=== PATIENT | female | born 1950 | race Caucasian/White ===

== ENCOUNTER 2017-04-27 14:31 | Inpatient (IN) | payer MEDICARE ==
[~2017-04-27] VITALS: Ht 147.3 cm; Wt 50.7 kg
--- NOTE | ~2017-04-27 | EC ---
PATIENT:SABINO COX DATE OF SERVICE: 04/27/17 SEX: F MEDICAL RECORD: [id number] DATE OF : [birth year] LOCATION:D.M2 D.212 AGE OF PATIENT: 67 ADMISSION DATE: 04/27/17 REFERRING PHYSICIAN: INTERPRETING PHYSICIAN: CRYSTAL NUÑEZ MD ECHOCARDIOGRAM REPORT ECHO CHARGES 4 ECHO COMPLETE DATE: CLINICAL DIAGNOSIS: DYSPNEA ECHOCARDIOGRAPHIC MEASUREMENTS (adult normal given) AC root (d.<3.7cm) 2.5 cm LV Septum d (<1.2 cm> 1.1 cm Valve Excursion 1.7 cm LV Septum (systole) 1.3 cm Left Atria (s.<4.0cm> 3.5 cm LVPW d(<1.2cm) 1.2 cm RV (d.<2.3cm) 2.2 cm LVPW (sytole) 1.8 cm LV diastole(<5.6CM) 4.9 cm MV E-F(>70mm/sec) cm LV systole 3.2 cm LVOT Diameter 1.7 cm MV exc.(>10mm) cm Est.ejection fraction (50-75%) % DOPPLER: LVIT cm/sec A 65.0 cm/sec E 101 cm/sec LA cm/sec RVSP 50.0 mmHg LVOT 104 cm/sec AOP1/2T m/s Asc. Ao 141 cm/sec RVOT 95.0 cm/sec RA cm/sec PA 121 cm/sec AV Gradient Peak 8.0 mmHg AV Mean 3.4 mmHg AV Area 2.1 cm MV Gradient Peak 4.8 mmHg MV Mean 2.1 mmHg MV Area cm COMMENTS: Gis Administrator: Raf KIRAN HARDIN Order Management Specialist: 4 Dr. Nuñez TAPE# PACS Pericardial Effusion N DATE OF SERVICE: 04/28/2017 PROCEDURE: Transthoracic echocardiogram. FINDINGS: 1. Left ventricle is hyperdynamic in the posterior wall, apical wall. There are regional wall motion abnormalities with a septal wall showing hypokinesis. Overall, ejection fraction is mildly reduced with ejection fraction of 35% to 40%. 2. The right ventricle has right ventricular hypertrophy with normal to ECHOCARDIOGRAM REPORT [id number] SABINO COX hyperdynamic function. 3. The left atrium is normal. 4. The right atrium is normal. 5. The right ventricle is normal. 6. There is mild mitral regurgitation. 7. The tricuspid valve has moderate tricuspid regurgitation. The RVSP between 40-50 mmHg. 8. There is no significant pericardial effusion. 9. The pulmonic valve has mild pulmonic insufficiency. CONCLUSIONS: The patient with mild left ventricular hypertrophy. There is what appears to be regional wall motion abnormalities, specifically in the anterior septal wall, reducing the ejection fraction into the 35% and 40% consistent with possible prior infarction and there is zmod-hp-apovquor pulmonary hypertension. TRANSINT:[id number] Voice Confirmation ID: [id number] DOCUMENT ID: [id number] CRYSTAL NUÑEZ MD at 0924 CC: [id number] DICTATION DATE: 04/28/17 1527 SLURRY MIXER: 04/28/17 1543 ADM IN [facility] [address] [place] [address]
--- NOTE | ~2017-04-27 | PN ---
PATIENT:SABINO COX MEDICAL RECORD: [id number] LOCATION:D. D.212 ADMISSION DATE: 04/27/17 PROGRESS NOTE DATE OF SERVICE: 04/29/2017 ADDENDUM CHIEF COMPLAINT: None. The patient is undergoing a PIPIDA scan with ejection fraction. I saw her in the radiology department. I saw her during the test. Her physical examination is unchanged from yesterday. I spoke to the radiation technologist. The radiation technologist then called me after the procedure to tell me that the ejection fraction was abnormally low at 17%. However, the patient did not have any reproduction of symptoms with Ensure ingestion. Palpation of the upper abdomen aggravates. Nothing alleviates. Symptoms are of moderate severity. They are intermittent. For the typed portion of the progress note, please see the chart. This will include past medical and surgical history, current medications, allergies, social history, as well as family history. REVIEW OF SYSTEMS: Currently, no nausea, no vomiting, no fever, no chills. Positive for shortness of breath, no chest pain. Positive for abdominal pain and tenderness. PHYSICAL EXAMINATION: GENERAL: The patient does not appear acutely ill. She does appear chronically ill. VITAL SIGNS: Reviewed. The entire examination was performed in the presence of a female radiation technologist. EARS: External ears appear normal. Eyes: Extraocular movements are intact. NECK: Trachea is midline. CHEST: No intercostal retractions. PULMONARY: Mildly labored. No stridor. ABDOMEN: Tenderness as described above. No peritonitis to percussion. EXTREMITIES: No peripheral cyanosis. INTEGUMENT: There is an intertriginous rash. BACK: Mild thoracic kyphosis. LYMPHATIC: No lymphangitic streaking of the exposed extremities. IMPRESSION: 1. Biliary dyskinesia. 2. Pneumonia with exacerbation of chronic obstructive pulmonary disease. PLAN: The patient is at too high risk for a laparoscopic operation at this time. The fact that the patient did have an ejection fraction reveals that the patient does not have acute cholecystitis and/or a cystic ductal obstruction. Therefore, her current situation is not life threatening. I would wait until her pulmonary status is improved and her pneumonia has resolved and then we could consider an elective cholecystectomy at that time. TRANSINT:[id number] Voice Confirmation ID: [id number] DOCUMENT ID: [id number] PROGRESS NOTE [id number] KENNYSABINO OSWALD MARKOS FERRELL MD at 1042 CC: [id number] DICTATION DATE: 04/29/17 1653 FIRMWARE SOFTWARE VERIFICATION ENGINEER: 04/29/17 1832 ADM IN [place] [id number] [place] [id number]
--- NOTE | ~2017-04-27 | CN ---
PATIENT NAME:SABINO COX MEDICAL RECORD: [id number] : 48 LOCATION:D. D.2125 ADMIT DATE: 04/27/17 ACCOUNT: [id number] CONSULTING PHYSICIAN: MARKOS FERRELL MD REFERRING PHYSICIAN: LISSA SEALS MD DATE OF CONSULTATION: 04/28/2017 CHIEF COMPLAINT: Gallbladder problems. HISTORY OF PRESENT ILLNESS: I was asked to see the patient due to the possibility of gallbladder problems. The patient had a gallbladder ultrasound at an outlying facility. The patient has been having band-like upper abdominal pain. The tenderness is more in the epigastrium in the right upper quadrant than on the left. This has been intermittent. It is longstanding. Sometimes it radiates around to the back. It may be associated with food intake. It is of moderate severity. Palpation aggravates as does eating food. Nothing alleviates. I need to determine whether the patient has a life-threatening problem such as acute cholecystitis and/or a cystic ductal obstruction. The best way to determine this would be a PIPIDA scan with ejection fraction to see if there is some wall motion with either cholecystokinin injection or Ensure ingestion. I will plan to have this procedure performed tomorrow. This is a consultation note addendum. For the typed portion of the consult note, please see the chart. This will include the past medical and surgical history, current medications, allergies, social history as well as family history. REVIEW OF SYSTEMS: Positive for nausea. No vomiting, no fever, no chills. Positive for shortness of breath, no chest pain, no headache. PHYSICAL EXAMINATION: GENERAL: The patient does appear acutely ill. Also appears chronically ill. The entire physical examination was performed with the presence of a female nurse. VITAL SIGNS: Reviewed. EARS: External ears appear normal. EYES: Extraocular movements are intact. NECK: Trachea is midline. CHEST: No intercostal retractions. PULMONARY: Mildly labored and no stridor. Intercostal retractions are present. ABDOMEN: Tenderness as described above. No peritonitis to percussion. EXTREMITIES: No peripheral cyanosis. INTEGUMENT: There is an intertriginous rash. BACK: Mild thoracic kyphosis. LYMPHATICS: No lymphangitic streaking of the exposed extremities. PSYCHIATRIC: Normal affect. IMPRESSION: Abdominal pain, rule out gallbladder pathology. PLAN: Serial abdominal examinations. A PIPIDA scan with ejection fraction as described above. TRANSINT:[id number] Voice Confirmation ID: [id number] DOCUMENT ID: [id number] CONSULT REPORT [id number] SABINO COX ROBERT MD at 1042 CC: [id number] DICTATION DATE: 04/29/17 165 AUTOMATIC GLOVE TURNER AND FORMER: 04/29/17 1850 ADM IN [place] [id number] [place] [address]
--- NOTE | ~2017-04-27 | CN ---
PATIENT NAME:SABINO BRADSHAW MEDICAL RECORD: [id number] : 48 LOCATION:D. D.2125 ADMIT DATE: 04/27/17 ACCOUNT: [id number] CONSULTING PHYSICIAN: DIANA DAVIDSON MD REFERRING PHYSICIAN: RANJAN KINGSTON MD DATE OF CONSULTATION: 04/28/2017 CONSULT REQUESTING PHYSICIAN: Ranjan Kingston MD REASON FOR CONSULTATION: Pneumonia, ilsyd-sq-tmumedt hypoxic respiratory failure. HISTORY OF PRESENT ILLNESS: Ms. Bradshaw is a 67-year-old female who has pneumonia in the first week of April, she was discharged from [facility]. She was readmitted on the through the ER with pneumonia, hypotension and she required pressors. The patient was transferred from [place] to [facility] for advanced care. Now, she is coughing, the fever has gone. She still feels weak and shortness of breath with mild exertion. The cough is productive with green phlegm. She is also complaining of pain in the right upper quadrant. REVIEW OF SYSTEMS: Mainly in the history of present illness. PAST MEDICAL HISTORY: 1. Chronic obstructive pulmonary disease. 2. Chronic hypoxic respiratory failure. 3. Peripheral vascular disease. 4. History of nephrolithiasis. 5. Hypertension. 6. Coronary artery disease status post stent placement. PAST SURGICAL HISTORY: 1. Hysterectomy. 2. Lithotripsy. 3. Cardiac catheterization and stent placement. 4. Peripheral vessel stent placement. ALLERGIES: SHE IS ALLERGIC TO TRIAMINIC AND PSEUDOEPHEDRINE. MEDICATIONS: [employer] was reviewed. PERSONAL AND SOCIAL HISTORY: The patient has just quit smoking, January 2017. She smoked since the age of 18. She is a nondrinker. FAMILY HISTORY: Noncontributory. PHYSICAL EXAMINATION: GENERAL: Now, the patient is lying comfortably in the bed. She is in mild respiratory distress. VITAL SIGNS: The blood pressure is 140/62, pulse is 94, respiration is 21, temperature 98.1, and SpO2 is 96% on 2-1/2 liter nasal cannula. HEENT: Conjunctivae are pink. Sclerae are not icteric. NECK: Neck is supple. There is no JVD. CHEST: There are bilateral crackles, right more than the left. There is wheeze on forceful expiration. CONSULT REPORT [id number] KENNY,SABINO L HEART: Rhythm regular, normal sound, no murmur. ABDOMEN: Abdomen is soft, bowel sounds present. No hepatosplenomegaly. RECTAL: Deferred. EXTREMITIES: No cyanosis, no clubbing, no pedal edema. SKIN: The skin is warm, normal turgor. CENTRAL NERVOUS SYSTEM: The patient is awake and alert. There are no obvious cranial nerve abnormalities. The gait was not tested. CHEST RADIOGRAPH: There is infiltrate in the right lower lobe. There is a small right pleural effusion, possible parapneumonic right pleural effusion. IMPRESSION: 1. Possible congestive heart failure with chronic diastolic dysfunction. 2. Leukocytosis secondary to pneumonia. 3. Gastroesophageal reflux disease. 4. Coronary artery disease. 5. Ex-smoker. 6. Hypokalemia. 7. Possible cholecystitis. RECOMMENDATIONS: 1. Continue vancomycin and Levaquin. I will add cefepime 1 gram IV q.8 hourly. 2. Start methylprednisolone IV. Start Brovana and budesonide nebulizer. 3. Albuterol and ipratropium nebulizer q.i.d. and 4 hourly p.r.n. 4. Supplemental oxygen. 5. Antitussive. 6. Check alpha 1 antitrypsin level. 7. Check IgG, IgM, IgE, IgA. 8. Check the CT scan of the chest to rule out any obstructive pneumonia. 9. Speech pathologist evaluation for dysphagia. 10. Gastroesophageal reflux disease precautions given. Dr. Kingston, thank you for involving me in the care of Ms. Bradshaw. TRANSINT:[id number] Voice Confirmation ID: [id number] DOCUMENT ID: [id number] DIANA DAVIDSON MD at 1410 CC: RANJAN KINGSTON MD [id number] DICTATION DATE: 04/28/17 1249 REFLECTOR DRILLER AND DEBURRER: 04/28/17 1357 DIS IN 05/04/17 [place] [address]
[2017-04-27] MEDS ORDERED: K-TAB10 MEQ PO (17:20)
[2017-04-27] MEDS ORDERED: FUROSEMIDE20 MG PO (17:21)
[2017-04-27] MEDS ORDERED: HYDROCODONE-APA1 TAB PO (17:21)
[2017-04-27] MEDS ORDERED: PLAVIX75 MG PO (17:22)
[2017-04-27] MEDS ORDERED: ISOSORBIDE MONO60 M1 PO (17:22)
[2017-04-27] MEDS ORDERED: LOPRESSOR25 MG PO (17:22)
[2017-04-27] MEDS ORDERED: STIOLTO RESPIMAT4 GM INH (17:23)
[2017-04-27] MEDS ORDERED: REGLAN10 MG PO (17:23)
[2017-04-27] MEDS ORDERED: DALIRESP500 MCG PO (17:24)
[2017-04-27 18:03] VITALS: BP 145/64; BMI 20.3
[2017-04-27] MEDS ORDERED: PREDNISONE5 MG PO (18:36)
[2017-04-27 18:48] LABS: BASOPHILS 0.1 % (0-2); EOSINOPHILS 0 % (0-7); HEMATOCRIT 36.7 % (36.0-48.0); HEMOGLOBIN 12.5 g/dL (12-16); IMMATURE GRANULOCYTES 0.5 % (0-5); LYMPHOCYTES 1.6 % (15-50); MCH 32.6 pg (26.0-34.0); MCHC 34.1 g/dL (31.0-37.0); MCV 95.6 fL (80.0-100.0); MEAN PLATELET VOLUME 9.5 fL (7.4-10.4); MONOCYTES 3.8 % (2-11); PLATELET COUNT 180 10x3/uL (130-400); RBC 3.84 10x6/uL (4.00-5.40); RDW 16.3 % (11.5-14.5); WBC 12.2 10x3/uL (4.8-10.8)
[2017-04-27 19:12] LABS: ALBUMIN 1.9 g/dL (3.4-5.0); ALKALINE PHOSPHATASE 78 U/L (46-116); ALT (SGPT) 23 U/L (10-68); BILIRUBIN - TOTAL 0.97 mg/dL (0.2-1.3); CALC OSMOLALITY 280 mosm/kg (275-300); CALCIUM 8.4 mg/dL (8.5-10.1); CARBON DIOXIDE 23.9 mmol/L (21.0-32.0); CHLORIDE - SERUM 108 mmol/L (98-107); CREATININE - SERUM 0.8 mg/dL (0.6-1.3); GLUCOSE 114 mg/dL (74-106); POTASSIUM - SERUM 3.1 mmol/L (3.5-5.1); PROTEIN - SERUM 6.2 g/dL (6.4-8.2); SODIUM 141 mmol/L (136-145); UREA NITROGEN 10 mg/dL (7-18); eGFR NON AFRICAN AMERICAN 75 mL/min (90-120)
[2017-04-27 22:47] VITALS: BP 139/70
[2017-04-28 05:02] LABS: BASOPHILS 0.1 % (0-2); EOSINOPHILS 0.3 % (0-7); HEMATOCRIT 38.2 % (36.0-48.0); HEMOGLOBIN 12.7 g/dL (12-16); IMMATURE GRANULOCYTES 0.4 % (0-5); LYMPHOCYTES 5.2 % (15-50); MCH 31.9 pg (26.0-34.0); MCHC 33.2 g/dL (31.0-37.0); MEAN PLATELET VOLUME 9.6 fL (7.4-10.4); MONOCYTES 4.9 % (2-11); NEUTROPHILS 89.1 % (40-80); PLATELET COUNT 190 10x3/uL (130-400); RBC 3.98 10x6/uL (4.00-5.40); WBC 10.9 10x3/uL (4.8-10.8)
[2017-04-28 05:12] LABS: ALBUMIN 1.9 g/dL (3.4-5.0); ALKALINE PHOSPHATASE 82 U/L (46-116); ALT (SGPT) 20 U/L (10-68); CALC OSMOLALITY 276 mosm/kg (275-300); CALCIUM 8.1 mg/dL (8.5-10.1); CARBON DIOXIDE 27.2 mmol/L (21.0-32.0); CHLORIDE - SERUM 107 mmol/L (98-107); CREATININE - SERUM 0.8 mg/dL (0.6-1.3); POTASSIUM - SERUM 3.1 mmol/L (3.5-5.1); PROTEIN - SERUM 6.1 g/dL (6.4-8.2); SODIUM 141 mmol/L (136-145); UREA NITROGEN 8 mg/dL (7-18); eGFR NON AFRICAN AMERICAN 75 mL/min (90-120)
[2017-04-28 05:19] LABS: GLUCOSE 70 mg/dL (74-106)
[2017-04-28 06:39] VITALS: BP 165/84
[2017-04-28 08:27] VITALS: BP 142/68
[2017-04-28 10:57] VITALS: Ht 147.3 cm; Wt 50.7 kg
[2017-04-28 10:58] VITALS: BP 140/62
[2017-04-28] MEDS ORDERED: HYDROCODON-ACE1 EAC7 PO (11:38)
[2017-04-28 12:24] LABS: APPEARANCE HAZY (CLEAR); BACTERIA FEW /hpf (NONE SEEN); BILIRUBIN NEGATIVE (NEGATIVE); COLOR STRAW (YELLOW); EPITHELIAL CELLS OCC /hpf (0-5); GLUCOSE NEGATIVE (NEGATIVE); KETONE NEGATIVE (NEGATIVE); NITRITE NEGATIVE (NEGATIVE); PROTEIN NEGATIVE (NEGATIVE); SPECIFIC GRAVITY 1.005 (1.005-1.020); UROBILINOGEN NORMAL (NORMAL); WHITE CELLS - URINE OCC /hpf (0-5)
[2017-04-28 14:46] VITALS: BP 146/64
[2017-04-28 19:00] VITALS: BP 149/70
[2017-04-29 04:00] VITALS: BP 162/92
[2017-04-29 05:39] LABS: BASOPHILS 0 % (0-2); EOSINOPHILS 0 % (0-7); HEMATOCRIT 35.1 % (36.0-48.0); HEMOGLOBIN 11.7 g/dL (12-16); IMMATURE GRANULOCYTES 0.4 % (0-5); LYMPHOCYTES 4.9 % (15-50); MCH 31.1 pg (26.0-34.0); MCHC 33.3 g/dL (31.0-37.0); MEAN PLATELET VOLUME 9.6 fL (7.4-10.4); MONOCYTES 4.3 % (2-11); NEUTROPHILS 90.4 % (40-80); PLATELET COUNT 164 10x3/uL (130-400); RBC 3.76 10x6/uL (4.00-5.40); RDW 15.2 % (11.5-14.5)
[2017-04-29 05:42] LABS: MCV 93.4 fL (80.0-100.0); WBC 5.5 10x3/uL (4.8-10.8)
[2017-04-29 06:00] LABS: ALBUMIN 1.8 g/dL (3.4-5.0); ALKALINE PHOSPHATASE 68 U/L (46-116); ALT (SGPT) 21 U/L (10-68); CALCIUM 8.3 mg/dL (8.5-10.1); CARBON DIOXIDE 23.5 mmol/L (21.0-32.0); CHLORIDE - SERUM 109 mmol/L (98-107); CREATININE - SERUM 0.7 mg/dL (0.6-1.3); PROTEIN - SERUM 5.9 g/dL (6.4-8.2); SODIUM 144 mmol/L (136-145); UREA NITROGEN 9 mg/dL (7-18); eGFR NON AFRICAN AMERICAN 88 mL/min (90-120)
[2017-04-29 06:06] LABS: CALC OSMOLALITY 286 mosm/kg (275-300); GLUCOSE 109 mg/dL (74-106); POTASSIUM - SERUM 3.6 mmol/L (3.5-5.1)
[2017-04-29 09:03] VITALS: BP 151/75
[2017-04-29] MEDS ORDERED: BONIVA150 MG PO (12:31)
[2017-04-29 16:00] VITALS: BP 150/65
[2017-04-29] MEDS ORDERED: MELATONIN5 M3 PO (21:22)
[2017-04-29 21:44] VITALS: BP 115/50
[2017-04-30 00:30] VITALS: BP 135/59
[2017-04-30 04:30] VITALS: BP 141/71
[2017-04-30 04:35] LABS: BASOPHILS 0.1 % (0-2); EOSINOPHILS 0 % (0-7); HEMOGLOBIN 10.5 g/dL (12-16); IMMATURE GRANULOCYTES 0.4 % (0-5); LYMPHOCYTES 4.8 % (15-50); MCH 30.7 pg (26.0-34.0); MCHC 32.8 g/dL (31.0-37.0); MCV 93.6 fL (80.0-100.0); MEAN PLATELET VOLUME 9.6 fL (7.4-10.4); MONOCYTES 6.2 % (2-11); NEUTROPHILS 88.5 % (40-80); PLATELET COUNT 189 10x3/uL (130-400); RBC 3.42 10x6/uL (4.00-5.40); RDW 14.9 % (11.5-14.5)
[2017-04-30 04:37] LABS: WBC 7.6 10x3/uL (4.8-10.8)
[2017-04-30 05:06] LABS: ALBUMIN 1.7 g/dL (3.4-5.0); ALKALINE PHOSPHATASE 60 U/L (46-116); CALCIUM 8.3 mg/dL (8.5-10.1); CARBON DIOXIDE 27.4 mmol/L (21.0-32.0); CHLORIDE - SERUM 106 mmol/L (98-107); CREATININE - SERUM 0.8 mg/dL (0.6-1.3); GLUCOSE 116 mg/dL (74-106); POTASSIUM - SERUM 3.3 mmol/L (3.5-5.1); PROTEIN - SERUM 5.4 g/dL (6.4-8.2); SODIUM 140 mmol/L (136-145); eGFR NON AFRICAN AMERICAN 75 mL/min (90-120)
[2017-04-30 05:15] LABS: ALT (SGPT) 41 U/L (10-68); CALC OSMOLALITY 283 mosm/kg (275-300); UREA NITROGEN 23 mg/dL (7-18)
[2017-04-30 09:21] VITALS: BP 143/56
[2017-04-30 13:50] VITALS: BP 151/71
[2017-04-30 16:59] VITALS: BP 146/70
[2017-04-30 20:30] VITALS: BP 144/63
[2017-05-01] VITALS (12 sets, daily range): BP systolic 108–165; BP diastolic 51–84
[2017-05-01 04:33] LABS: BASOPHILS 0 % (0-2); EOSINOPHILS 0 % (0-7); HEMOGLOBIN 10.8 g/dL (12-16); IMMATURE GRANULOCYTES 0.4 % (0-5); LYMPHOCYTES 5.4 % (15-50); MCHC 32.7 g/dL (31.0-37.0); MCV 94.8 fL (80.0-100.0); MEAN PLATELET VOLUME 9.5 fL (7.4-10.4); MONOCYTES 8.6 % (2-11); NEUTROPHILS 85.6 % (40-80); RBC 3.48 10x6/uL (4.00-5.40); RDW 15.2 % (11.5-14.5)
[2017-05-01 04:34] LABS: PLATELET COUNT 238 10x3/uL (130-400); WBC 5.3 10x3/uL (4.8-10.8)
[2017-05-01 04:44] LABS: ALBUMIN 1.9 g/dL (3.4-5.0); ALKALINE PHOSPHATASE 55 U/L (46-116); ALT (SGPT) 40 U/L (10-68); BILIRUBIN - TOTAL 0.44 mg/dL (0.2-1.3); CALC OSMOLALITY 294 mosm/kg (275-300); CALCIUM 7.8 mg/dL (8.5-10.1); CARBON DIOXIDE 27.9 mmol/L (21.0-32.0); CHLORIDE - SERUM 109 mmol/L (98-107); CREATININE - SERUM 0.8 mg/dL (0.6-1.3); GLUCOSE 118 mg/dL (74-106); POTASSIUM - SERUM 4.1 mmol/L (3.5-5.1); PROTEIN - SERUM 5.6 g/dL (6.4-8.2); SODIUM 146 mmol/L (136-145); UREA NITROGEN 21 mg/dL (7-18); eGFR NON AFRICAN AMERICAN 75 mL/min (90-120)
[2017-05-01 07:13] LABS: APTT 28.3 SECONDS (22.8-39.4); INR 1.1 (0.85-1.17); PROTIME 13.8 SECONDS (11.6-15.0)
[2017-05-01 12:47] LABS: PROTEIN - BODY FLUID 1.5 G/DL
[2017-05-01 13:02] LABS: MACROPHAGES BF 6 %; MESOTHELIALS BF 5 %; NEUT - BF 84 %
[2017-05-01 13:13] LABS: IMMUNOGLOBULIN A 273 mg/dL (87-352); IMMUNOGLOBULIN M 67 mg/dL (26-217)
[2017-05-01 19:48] LABS: % SATURATION 18 % (15-55); IRON 32 ug/dl (35-150); TOTAL IRON BIND CAPACITY 172 ug/dl (260-445); UNSAT IRON BIND CAPACITY 140 ug/dl (150-375)
[2017-05-02 00:24] VITALS: BP 123/49
[2017-05-02 05:31] VITALS: BP 144/69
[2017-05-02 06:22] LABS: BASOPHILS 0.2 % (0-2); EOSINOPHILS 0.2 % (0-7); HEMOGLOBIN 11.7 g/dL (12-16); IMMATURE GRANULOCYTES 0.8 % (0-5); MCH 30.7 pg (26.0-34.0); MCHC 32.5 g/dL (31.0-37.0); MCV 94.5 fL (80.0-100.0); MEAN PLATELET VOLUME 8.9 fL (7.4-10.4); NEUTROPHILS 69.8 % (40-80); PLATELET COUNT 274 10x3/uL (130-400); RBC 3.81 10x6/uL (4.00-5.40); RDW 15.3 % (11.5-14.5); WBC 6.3 10x3/uL (4.8-10.8)
[2017-05-02 06:35] LABS: BILIRUBIN - TOTAL 0.6 mg/dL (0.2-1.3); CALCIUM 7.8 mg/dL (8.5-10.1); CARBON DIOXIDE 30.3 mmol/L (21.0-32.0); PROTEIN - SERUM 5.7 g/dL (6.4-8.2)
[2017-05-02 06:36] LABS: ANION GAP 9.9 mmol/L (8-16); POTASSIUM - SERUM 3.2 mmol/L (3.5-5.1)
[2017-05-02 08:00] VITALS: BP 125/56
[2017-05-02 11:47] VITALS: BP 145/66
[2017-05-02 14:19] LABS: IGG SUBCLASS 1 488 mg/dL (248-810); IGG SUBCLASS 2 100 mg/dL (130-555); IGG SUBCLASS 3 41 mg/dL (15-102); IGG SUBCLASS 4 32 mg/dL (2-96); IMMUNOGLOBULIN G 664 mg/dL (700-1600)
[2017-05-02 15:11] VITALS: BP 139/63
[2017-05-02 15:23] LABS: AFB SPECIMEN PROCESSING Not Indicated (())
[2017-05-03] VITALS: BP 138/60
[2017-05-03 05:18] VITALS: BP 134/54
[2017-05-03 06:24] LABS: BASOPHILS 0 % (0-2); EOSINOPHILS 0.2 % (0-7); HEMATOCRIT 32.3 % (36.0-48.0); HEMOGLOBIN 10.5 g/dL (12-16); IMMATURE GRANULOCYTES 0.9 % (0-5); LYMPHOCYTES 16.2 % (15-50); MCH 30.8 pg (26.0-34.0); MCHC 32.5 g/dL (31.0-37.0); MCV 94.7 fL (80.0-100.0); MEAN PLATELET VOLUME 9.5 fL (7.4-10.4); MONOCYTES 9.2 % (2-11); NEUTROPHILS 73.5 % (40-80); PLATELET COUNT 280 10x3/uL (130-400); RBC 3.41 10x6/uL (4.00-5.40); RDW 15.2 % (11.5-14.5); WBC 5.7 10x3/uL (4.8-10.8)
[2017-05-03 06:28] LABS: CALC OSMOLALITY 284 mosm/kg (275-300); CALCIUM 8.1 mg/dL (8.5-10.1); CHLORIDE - SERUM 107 mmol/L (98-107); CREATININE - SERUM 0.7 mg/dL (0.6-1.3); GLUCOSE 79 mg/dL (74-106); POTASSIUM - SERUM 3.5 mmol/L (3.5-5.1); SODIUM 143 mmol/L (136-145); UREA NITROGEN 15 mg/dL (7-18); eGFR NON AFRICAN AMERICAN 88 mL/min (90-120)
[2017-05-03 09:17] LABS: FOLATE (FOLIC ACID) - SERUM 16.7 ng/mL (>3.0)
[2017-05-03 10:52] VITALS: BP 107/52
[2017-05-03 14:24] LABS: FUNGUS STAIN Final report (())
[2017-05-03 16:25] VITALS: BP 158/56
[2017-05-03 20:00] VITALS: BP 150/60
[2017-05-04] VITALS: BP 151/64
[2017-05-04 04:00] VITALS: BP 156/76
[2017-05-04 08:34] VITALS: BP 153/62
[2017-05-04] MEDS ORDERED: IPRAT-ALBUT 0.5-3 ML UPD (08:41)
[2017-05-04] MEDS ORDERED: PROTONIX40 MG PO (08:42)
[2017-05-04] MEDS ORDERED: PREDNISONE20 MG PO (08:44)
[2017-05-04 10:22] LABS: IMMUNOGLOBULIN E 45 IU/mL (0-100)
[2017-05-04 11:52] VITALS: BP 140/65
[2017-05-29 15:23] LABS: FUNGUS MYCOLOGY CULTURE Final report (())
[2017-06-26 18:09] LABS: ACID FAST CULTURE Negative (()); ACID FAST SMEAR Negative (())
[2017-06-27] MEDS ORDERED: LEVAQUIN500 MG PO (10:57)
[2017-06-27] MEDS ORDERED: ASMANEX0.24 GM INH (11:00)
[2017-06-27] MEDS ORDERED: ESTRACE 0.5 MG0.5 MG PO (11:00)
[2017-06-27] MEDS ORDERED: STIOLTO RESPIMAT4 GM INH (11:01)
== END 2017-05-04 12:55 | disposition home or self-care (01) | DRG 291 ==
LOC: UNDOADMIN 14:31 → D.M2 14:31 → D.MS 16:01 → D.M2 16:42
PROVIDERS: Family Medicine Adult Medicine; General Practice; Internal Medicine Nephrology; Internal Medicine Pulmonary Disease
PROC: 0W993ZZ Drainage of Right Pleural Cavity, Percutaneous Approach (ICD-10-PCS; principal; 2017-05-01 08:41)
DX: I50.33 Acute on chronic diastolic (congestive) heart failure (principal); J18.9 Pneumonia, unspecified organism; J96.21 Acute and chronic respiratory failure with hypoxia; J44.0 Chronic obstructive pulmonary disease with (acute) lower respiratory infection; J44.1 Chronic obstructive pulmonary disease with (acute) exacerbation; I25.10 Atherosclerotic heart disease of native coronary artery without angina pectoris; Z95.5 Presence of coronary angioplasty implant and graft; I11.0 Hypertensive heart disease with heart failure; Z87.891 Personal history of nicotine dependence; E87.6 Hypokalemia; D53.9 Nutritional anemia, unspecified; K81.9 Cholecystitis, unspecified

== ENCOUNTER → 2017-06-21 08:16 | Outpatient (CLI) | payer MEDICARE, MEDICAID ==
[2017-04-28 10:57] VITALS: BMI 23.2
[~2017-06-21 08:16] MED LIST: ASMANEX0.24 GM INH; BONIVA150 MG PO; DALIRESP500 MCG PO; ESTRACE 0.5 MG0.5 MG PO; FUROSEMIDE20 MG PO; HYDROCODON-ACE1 EAC7 PO; HYDROCODONE-APA1 TAB PO; IPRAT-ALBUT 0.5-3 ML UPD; ISOSORBIDE MONO60 M1 PO; K-TAB10 MEQ PO; LEVAQUIN500 MG PO; LOPRESSOR25 MG PO; MELATONIN5 M3 PO; PLAVIX75 MG PO; PREDNISONE20 MG PO; PREDNISONE5 MG PO; PROTONIX40 MG PO; REGLAN10 MG PO; STIOLTO RESPIMAT4 GM INH
== END | disposition home or self-care (01) ==
LOC: D.RT 08:16
DX: J18.9 Pneumonia, unspecified organism (principal); J44.9 Chronic obstructive pulmonary disease, unspecified

== ENCOUNTER 2017-06-30 09:32 | Day surgery (SDC) | payer MEDICARE ==
[2017-06-27 11:51] LABS: HEMOGLOBIN 13.6 g/dL (12-16); MCH 31.5 pg (26.0-34.0); MCHC 33.2 g/dL (31.0-37.0); MCV 94.9 fL (80.0-100.0); MEAN PLATELET VOLUME 9.1 fL (7.4-10.4); RBC 4.32 10x6/uL (4.00-5.40); RDW 14.2 % (11.5-14.5); WBC 8.5 10x3/uL (4.8-10.8)
[2017-06-27 12:10] LABS: ANION GAP 10.9 mmol/L (8-16); CALCIUM 9.1 mg/dL (8.5-10.1); CARBON DIOXIDE 31.4 mmol/L (21.0-32.0); POTASSIUM - SERUM 3.3 mmol/L (3.5-5.1)
[2017-06-27 12:15] LABS: APTT 35.6 SECONDS (22.8-39.4); INR 1.03 (0.85-1.17); PROTIME 13.1 SECONDS (11.6-15.0)
[~2017-06-30] VITALS: Ht 147.3 cm; Wt 45.8 kg
--- NOTE | ~2017-06-30 | OP ---
PATIENT NAME: SABINO COX MEDICAL RECORD: [id number] :48 LOCATION:[facility] ADMISSION DATE: SURGEON: MARKOS FERRELL MD DATE OF OPERATION: 06/30/2017 PREOPERATIVE DIAGNOSIS: Biliary dyskinesia. POSTOPERATIVE DIAGNOSES: Biliary dyskinesia with hepatomegaly and adhesions to the gallbladder. PROCEDURE: 1. Laparoscopic cholecystectomy. 2. Intraoperative cholangiography without immediate surgeon interpretation. 3. A 14-gauge core needle liver biopsy. SURGEON: Markos Ferrell MD DRUG REGULATORY AFFAIRS SPECIALIST: JOVANY Spaulding. BLOOD LOSS: Minimal. COMPLICATIONS: None. The risks, possible complications, and alternatives to the procedure were explained to the patient. She elects to proceed. The discussion specifically included, but was not limited to, bleeding requiring emergency reoperation, infection, intestinal injury as well as common bile duct injury. OPERATIVE COURSE: The patient was conveyed to the operating room electively on 06/30/2017. General anesthesia was induced by the anesthesia staff. The abdomen was sterilely prepped and draped. A small skin nicole was accomplished in the left upper quadrant. A Veress needle was inserted through the skin nicole into the peritoneal cavity. CO2 insufflation was begun. Once a sufficient pneumoperitoneum had been achieved, a 5-mm trocar was inserted through an incision in the right upper quadrant. Under direct internal vision utilizing a television camera, a 12-mm trocar was inserted through a hernia defect at the umbilicus. A 5-mm trocar was inserted through an incision in the left upper quadrant. Another 5-mm trocar was inserted through the skin incision far laterally in the right upper quadrant. During insertion of the Veress needle and all trocars, there appeared to have been no injury to the bowels, any intraperitoneal or retroperitoneal structures. An abdominal survey was undertaken. The indication for the liver biopsy was hepatomegaly. Under laparoscopic guidance, I percutaneously accessed the right upper quadrant utilizing a 14-gauge core needle liver biopsy device. Cores were obtained over the convexity of the liver. The biopsy sites were made hemostatic with the electrocautery. I then grasped the gallbladder. I advanced a cholangiogram trocar. I punctured the fundus of the gallbladder. I aspirated bile. I then injected dye. Real time cholangiographic images were obtained. Static images were obtained and sent to the radiologist for interpretation. I then aspirated and removed the cholangiogram trocar. OPERATIVE REPORT [id number] SABINO COX The gallbladder was grasped and retracted cephalad. Adhesions to the gallbladder were taken down bluntly. The infundibulum was splayed out. Blunt dissection was begun on the triangle of [place]ot. One cystic artery and one cystic duct were identified. These were clipped multiply and divided between clips. The gallbladder was then excised from its bed in the liver. It was placed within an Endobag retrieval device and was withdrawn through the umbilical fascia defect. A 12-mm trocar was replaced and the abdomen reinsufflated. I irrigated and aspirated the right upper quadrant. There was no bleeding even at low pressure of 8. All the trocars were removed and the abdomen desufflated. The umbilical hernia defect was closed with a [id number] 0 Vicryl sutures. The umbilical skin was approximated with interrupted 4-0 Vicryl Rapide sutures. The other trocar sites were closed with interrupted intracuticular 3-0 Vicryls. Benzoin and Steri-Strips were applied. The patient was then extubated and conveyed to post-anesthesia care unit where she was in stable condition. I will see the patient in my office in 2-3 weeks. She is going to be dismissed home on [place] for pain. My kennel assistant incised the skin and placed 2 of the 5-mm trocars. She obtained several of the liver biopsies. She isolated and clipped the cystic artery. She took down some of the gallbladder adhesions. She closed some of the trocar sites. She retracted tissue. TRANSINT:[id number] Voice Confirmation ID: [id number] DOCUMENT ID: [id number] MARKOS FERRELL MD at 1227 CC: HUGH DALLAS MD [id number] DICTATION DATE: 06/30/17 170 MANAGER CODE: 06/30/179 [facility] 06/30/17 [facility] [address] [place] [address]
[2017-06-30 10:14] VITALS: BP 131/57; Ht 147.3 cm; Wt 45.8 kg
== END 2017-06-30 20:05 | disposition home or self-care (01) ==
LOC: D.OPS 09:32
PROVIDERS: Anesthesiology
DX: K81.1 Chronic cholecystitis (principal); K82.8 Other specified diseases of gallbladder; R16.0 Hepatomegaly, not elsewhere classified; Z01.812 Encounter for preprocedural laboratory examination

== ENCOUNTER → 2018-01-22 15:19 | Outpatient (CLI) | payer MEDICARE ==
[2017-06-30 10:14] VITALS: BMI 21.1
== END | disposition home or self-care (01) ==
LOC: D.RT 01-15 14:00 → D.RAD 01-15 14:45 → D.RT 15:00
DX: J44.9 Chronic obstructive pulmonary disease, unspecified (principal)